=== PATIENT | female | born 1975 ===

== ENCOUNTER 2016-11-29 16:35 | Emergency (ER) | payer MEDICAID, OTHER ==
[2016-11-29 16:35] VITALS: BMI 25.0
[2016-11-29 16:54] VITALS: BP 101/67; PULSE 122; RESP 16; TEMP 97.8; O2SAT 98
--- NOTE | 2016-11-29 18:25 | C.PDOC ---
History Of Present Illness A 41 year old female, whose past medical history includes drug abuse, depression , and anxiety, presents to the emergency department for etoh, heroine, and cocaine detoxification. The patient admits her last use of all three substances were this morning. She denies any fever, chest pain, cough, vomiting, or any other complaints at this time. Time Seen by Provider: 11/29/16 17:02 Chief Complaint (Nursing): Substance Abuse History Per: Patient Onset/Duration Of Symptoms: Hrs Suicide/Self Injury Attempted (Context): None Modifying Factor(s): Alcohol, Cocaine, Other (heroin ) Additional History Per: Patient Past Medical History Vital Signs: Last Vital Signs Temp 97.8 F 11/29/16 16:50 Pulse 122 H 11/29/16 16:50 Resp 16 11/29/16 16:50 BP 101/67 11/29/16 16:50 Pulse Ox 98 11/29/16 18:32 - Medical History PMH: Anxiety, Depression Denies: Diabetes, Hepatitis, HIV, HTN, Seizures, Sexually Transmitted Disease Surgical History: Appendectomy - [facility] Procedures D & C NEC (07/11/98) DRUG DETOXIFICATION (12/09/14) FALLOPIAN TUBE INSUFFLAT (07/11/98) INJECT/INFUSE ELECTROLYT (12/11/13) INJECT/INFUSE NEC (12/11/13) LAPAROSCOP LYSIS-PERITONEAL ADHES (07/11/98) Family History: States: Unknown Family Hx - Social History Hx Tobacco Use: Yes Hx Alcohol Use: Yes Hx Substance Use: Yes (hx of) - Immunization History Hx Tetanus Toxoid Vaccination: Yes Hx Influenza Vaccination: No Hx Pneumococcal Vaccination: No Review Of Systems Except As Marked, All Systems Reviewed And Found Negative. Constitutional: Negative for: Fever Cardiovascular: Negative for: Chest Pain Respiratory: Negative for: Cough Gastrointestinal: Negative for: Vomiting Physical Exam - Physical Exam Appears: Well, No Acute Distress Skin: Normal Color, Warm, Dry Eye(s): bilateral: Normal Inspection, PERRL, EOMI Nose: Normal Throat: Normal Neck: Normal Cardiovascular: Rhythm Regular Respiratory: Normal Breath Sounds Gastrointestinal/Abdominal: Normal Exam Back: Normal Inspection Extremity: Normal ROM ED Course And Treatment O2 Sat by Pulse Oximetry: 98 Medical Decision Making Medical Decision Making: Treatment Plan: -- Labs: Alcohol serum, comp metabolic panel, drug screen -- Urinalysis Progress Notes: The patient is argumentative with [facility] staff and guards. I paged Dr. Mitchell and he no longer accepts the patient into his service or admission. The patient was given detoxification information and will be discharged. Disposition - Disposition Referrals: [facility] [Outside] [facility] [Outside] Disposition: HOME/ ROUTINE Disposition Time: 19:00 Condition: UNKNOWN Additional Instructions: Thank you for letting us take care of you today. The emergency medical care you received today was directed at your acute symptoms. If you were prescribed any medication, please fill it and take as directed. It may take several days for your symptoms to resolve. Return to the Emergency Department if your symptoms worsen, do not improve, or if you have any other problems. Please contact your doctor or call one of the physicians/clinics you have been referred to that are listed on the Patient Visit Information form that is included in your discharge packet. Bring any paperwork you were given at discharge with you along with any medications you are taking to your follow up visit. Our treatment cannot replace ongoing medical care by a primary care provider (PCP) outside of the emergency department. Thank you for allowing the [facility] team to be part of your care today. PLEASE FOLLOW UP WITH THE CLINIC FOR OUTPATIENT MEDICAL CARE. PLEASE USE THE DETOX LIST FOR ADDITIONAL LOCATIONS FOR DETOX. Instructions: Polysubstance Abuse (ED) - Clinical Impression Clinical Impression: Drug abuse - Scribe Statement The provider has reviewed the documentation as recorded by the Scribe Selma Bradshaw All medical record entries made by the Scribe were at my direction and personally dictated by me. I have reviewed the chart and agree that the record accurately reflects my personal performance of the history, physical exam, medical decision making, and the department course for this patient. I have also personally directed, reviewed, and agree with the discharge instructions and disposition. Physician Patient Turnover Patient Signed Over To: Guy Caro Handoff Comments: Pending crisis eval
[2016-11-29 19:18] LABS: BASO # 0.1 K/uL (0.0-0.2); BASO % 0.8 % (0.0-2.0); EOS # 0.2 K/uL (0.0-0.7); EOS % 3.1 % (0.0-4.0); HEMATOCRIT 39.8 % (34.0-47.0); LYMPH # 2.9 K/uL (1.0-4.3); LYMPH % 42.7 % (20.0-40.0); MEAN CELL VOLUME 90.9 fL (81.0-99.0); MEAN CORPUSCULAR HEMOGLOBIN 29.9 pg (27.0-31.0); MEAN PLATELET VOLUME 8.5 fL (7.2-11.7); MONO # 0.5 K/uL (0.0-0.8); MONO % 7.3 % (0.0-10.0); NRBC % 0.1 % (0.0-2.0); RED CELL DISTRIBUTION WIDTH 13.7 % (11.5-14.5); WHITE BLOOD COUNT 6.7 K/uL (4.8-10.8)
[2016-11-29 19:27] LABS: CHLORIDE 104 mmol/L (98-107); SODIUM 142 mmol/L (132-148)
[2016-11-29 19:29] LABS: GFR AFRICAN-AMERICAN > 60
[2016-11-29 19:30] LABS: ALB/GLOB RATIO 0.9 (1.0-2.1); ALKALINE PHOSPHATASE 113 U/L (38-126); ALT/SGPT 107 U/L (9-52); AST/SGOT 86 U/L (14-36); BILIRUBIN,TOTAL 0.9 mg/dL (0.2-1.3); BLOOD UREA NITROGEN 8 mg/dL (7-17); CALCIUM 9.3 mg/dl (8.6-10.4); CARBON DIOXIDE 26 mmol/L (22-30); GLUCOSE,RANDOM 96 mg/dL (65-105); TOTAL PROTEIN 7.9 g/dL (6.3-8.3)
[2016-11-29 19:31] LABS: ALCOHOL SERUM < 10 mg/dl (0-10)
[2016-11-29 19:40] LABS: URINE BACTERIA RARE (<OCC); URINE BILIRUBIN NEGATIVE (NEGATIVE); URINE BLOOD NEGATIVE (NEGATIVE); URINE CALCIUM OXALATE CRYSTALS OCC /hpf (<OCC); URINE GLUCOSE (UA) NORMAL (Normal); URINE KETONE TRACE mg/dL (NEGATIVE); URINE LEUKOCYTE ESTERASE NEG Leu/uL (Negative); URINE PROTEIN 1+ mg/dL (NEGATIVE); WBC URINE 2 /hpf (0-5)
[2016-11-29 19:41] LABS: URINE COLOR YELLOW (YELLOW)
== END 2016-11-29 20:46 | disposition left against medical advice (07) ==
LOC: C.ER 16:35
DX: F14.10 Cocaine abuse, uncomplicated (principal); F11.10 Opioid abuse, uncomplicated; F10.10 Alcohol abuse, uncomplicated; Y90.0 Blood alcohol level of less than 20 mg/100 ml

== ENCOUNTER 2017-05-09 13:12 | Inpatient (IN) | payer MEDICAID ==
[2017-05-09 13:13] VITALS: BMI 25.0
--- NOTE | 2017-05-09 13:53 | C.PDOC ---
History Of Present Illness 41 y/o female presents to ED requesting heroin detox. Patient reports last used earlier today and denies any physical complaints at this time. Time Seen by Provider: 05/09/17 13:37 Chief Complaint (Nursing): Substance Abuse History Per: Patient History/Exam Limitations: no limitations Onset/Duration Of Symptoms: Days Current Symptoms Are (Timing): Still Present Suicide/Self Injury Attempted (Context): None Past Medical History Reviewed: Historical Data, Nursing Documentation, Vital Signs Vital Signs: Last Vital Signs Temp 98.4 F 05/09/17 17:19 Pulse 58 L 05/09/17 17:19 Resp 18 05/09/17 16:03 BP 90/54 L 05/09/17 17:19 Pulse Ox 98 05/09/17 17:19 - Medical History PMH: Anxiety, Depression Surgical History: Appendectomy - [facility] Procedures D & C NEC (07/11/98) DRUG DETOXIFICATION (12/09/14) FALLOPIAN TUBE INSUFFLAT (07/11/98) INJECT/INFUSE ELECTROLYT (12/11/13) INJECT/INFUSE NEC (12/11/13) LAPAROSCOP LYSIS-PERITONEAL ADHES (07/11/98) Family History: States: No Known Family Hx - Social History Hx Tobacco Use: Yes Hx Alcohol Use: Yes Hx Substance Use: Yes (hx of) - Immunization History Hx Tetanus Toxoid Vaccination: Yes Hx Influenza Vaccination: No Hx Pneumococcal Vaccination: No Review Of Systems Except As Marked, All Systems Reviewed And Found Negative. Physical Exam - Physical Exam Appears: Non-toxic, No Acute Distress Skin: Warm, Dry, No Rash Head: Atraumatic, Normacephalic Eye(s): bilateral: Normal Inspection Oral Mucosa: Moist Neck: Normal ROM, Supple Cardiovascular: Rhythm Regular Respiratory: Normal Breath Sounds, No Rales, No Rhonchi, No Wheezing Gastrointestinal/Abdominal: Soft, No Tenderness, No Guarding, No Rebound Extremity: Normal ROM, Capillary Refill (<2 seconds) Neurological/Psych: Oriented x3 ED Course And Treatment - Laboratory Results Result Diagrams: 05/09/17 15:23 05/09/17 15:23 O2 Sat by Pulse Oximetry: 98 (RA) Pulse Ox Interpretation: Normal Medical Decision Making Medical Decision Making: Patient is here for detox - labs pending 410: medically cleared accepted dr gonzalez. urine treated. Disposition - Disposition Disposition: HOSPITALIZED Disposition Time: 05:30 Condition: STABLE - Clinical Impression Clinical Impression: Opiate addiction, UTI (urinary tract infection) - Scribe Statement The provider has reviewed the documentation as recorded by the Isaiasibluis daniel Sylvester All medical record entries made by the Scribe were at my direction and personally dictated by me. I have reviewed the chart and agree that the record accurately reflects my personal performance of the history, physical exam, medical decision making, and the department course for this patient. I have also personally directed, reviewed, and agree with the discharge instructions and disposition. Decision To Admit - Pt Status Changed To: Hospital Disposition Of: Inpatient - Admit Certification Admit to Inpatient:: After my assessment, the patient will require hospitalization for at least two midnights. This is because of the severity of symptoms shown, intensity of services needed, and/or the medical risk in this patient being treated as an outpatient. - InPatient: Physician Admission Certification: I certify that this patient requires 2 or more midnights of care for the following reason:: needs inpt for detox - . Bed Request Type: Detox Admitting Physician: Boris Gonzalez Patient Diagnosis: Opiate addiction, UTI (urinary tract infection)
[2017-05-09 15:32] LABS: BASO % 0.2 % (0.0-2.0); EOS # 0.3 K/uL (0.0-0.7); EOS % 3.1 % (0.0-4.0); LYMPH # 2.4 K/uL (1.0-4.3); LYMPH % 26.2 % (20.0-40.0); MEAN CELL VOLUME 88.6 fL (81.0-99.0); MEAN CORPUSCULAR HGB CONC 33.9 g/dL (33.0-37.0); MEAN PLATELET VOLUME 8.5 fL (7.2-11.7); MONO # 0.3 K/uL (0.0-0.8); MONO % 3.2 % (0.0-10.0); NEUT # 6.3 K/uL (1.8-7.0); NEUT % 67.3 % (50.0-75.0); NRBC % 0.1 % (0.0-2.0); RBC 4.66 Mil/uL (3.80-5.20); RED CELL DISTRIBUTION WIDTH 14.6 % (11.5-14.5); WHITE BLOOD COUNT 9.3 K/uL (4.8-10.8)
[2017-05-09 15:33] LABS: HCG,QUALITATIVE URINE NEGATIVE (NEGATIVE)
[2017-05-09 15:40] LABS: SQUAMOUS EPITHIAL 1 /hpf (0-5); URINE BACTERIA OCC (<OCC); URINE BILIRUBIN NEGATIVE (NEGATIVE); URINE BLOOD NEGATIVE (NEGATIVE); URINE CLARITY Clear (Clear); URINE COLOR Yellow (YELLOW); URINE GLUCOSE (UA) NORMAL (Normal); URINE LEUKOCYTE ESTERASE NEG Leu/uL (Negative); URINE NITRATE POSITIVE (NEGATIVE); URINE PROTEIN NEGATIVE (NEGATIVE); URINE UROBILINOGEN NORMAL mg/dL (0.2-1.0)
[2017-05-09 15:50] LABS: ALB/GLOB RATIO 0.9 (1.0-2.1); ALBUMIN 3.7 g/dL (3.5-5.0); ALT/SGPT 58 U/L (9-52); AST/SGOT 51 U/L (14-36); BLOOD UREA NITROGEN 5 mg/dL (7-17); CALCIUM 8.5 mg/dl (8.6-10.4); GFR AFRICAN-AMERICAN > 60; GFR NON-AFRICAN AMERICAN > 60
[2017-05-09 15:52] LABS: BARBITURATES, UR NEGATIVE (NEGATIVE); BENZODIAZEPINES, UR NEGATIVE (NEGATIVE); PHENCYCLIDINE, UR NEGATIVE (NEGATIVE)
[2017-05-09 16:00] LABS: OPIATES, UR POSITIVE (NEGATIVE)
[2017-05-09] MEDS ORDERED: Aluminum Hydroxide/Magnesium Hydroxide Susp (30 mL) PO PRN (17:20)
[2017-05-09] MEDS: Multiple Vitamins Tab PO SCH (18:14)
--- NOTE | 2017-05-09 18:20 | PCM.BM ---
<Priyanka Amos - Last Filed: 05/09/17 18:19> Treatment Plan Problems - Problems identified on initial assessmt Potential for alcohol withdrawal Date Initiated: 05/09/17 Time Initiated: 18:19 Assessment reference: NA Status: Active Priority: 1 Potential for opiate withdrawal Date Initiated: 05/09/17 Time Initiated: 18:19 Assessment reference: NA Status: Active Priority: 2 Treatment assets and liabiliti Patient Assests: ADL independent, negotiates basic needs, cognitively intact Patient Liabilities: substance abuse - Milieu Protocol Maintain good personal hygiene: daily Encourage regular showers, daily Remind patient to perform daily oral care, daily Assist patient to perform ADL's Conduct patient checks and document Observation sheet: Q15 minutes Maintain personal safety: every shift Educate patient to report safety concerns to staff, every shift Monitor environment for contraband/sharps Medication safety: Monitor for expected outcome, potential side effects: every shift, Assess barriers to learning: every shift, Assess readiness for medication education: every shift <Boris Corley - Last Filed: 05/14/17 23:40> - Diagnosis (1) Opioid dependence Status: Acute Interventions: 05/14/17 23:40 * Assess 7x/week regarding severity of withdrawal * Educate regarding risks, benefits, side effects and alternatives of medications * Use Motivational Interviewing for abstinence * Use CBT for relapse prevention * Medication management for withdrawal symptoms * Encourage medication assisted treatment *
[2017-05-10] MEDS: Multiple Vitamins Tab PO SCH (10:24)
--- NOTE | 2017-05-10 23:49 | PCM.PSYCH ---
Initial Psychiatric Evaluation - Initial Psychiatric Evaluation Type of Admission: Voluntary Legal Status: Capacity History of Present Illness and Precipitating Events: Patient is a 41 yo LF single with 2 children, both teens, unemployed, lives alone. The patient was admitted in 2014 to our detox and last year to [facility], psych. Patient shoots heroin when the boyfriend is at work. She says she uses anywhere from 20 to 50 bags, IV, x6 years. Same with cocaine; 6 years, IV. She uses alcohol more than a pint x6 months (no wdw) and xanax 2-3 sticks not daily x 3 months She has been to detox at least 10 x, rehab once in [facility]. Past Psych Hx: patient reports history of anxiety, irritability. reports one admission in 2013 and 2016 for suicide attempt and depression respectively. Family Psych Hx: patient denies any family history of psychiatric disorders. The patient's sister also has a history of substance abuse. Parents too. Past Medical Hx: patient denies any significant past medical history. Current Medications: Active Medications Generic Name Dose Route Start Last Admin Trade Name Freq PRN Reason Stop Dose Admin Al Hydrox/Mg Hydrox/Simethicone 30 ml 05/09/17 17:20 Maalox 30 Ml PO TID PRN Indigestion / Heartburn Chlordiazepoxide 25 mg 05/09/17 18:00 05/10/17 17:29 Librium PO 05/14/17 17:59 25 mg Q8H RUBEN Administration Taper Chlordiazepoxide 25 mg 05/10/17 14:07 05/10/17 15:28 Librium PO 25 mg Q4H PRN Administration withdrawal Clonidine HCl 0.1 mg 05/09/17 17:18 05/10/17 19:31 Catapres PO 0.1 mg Q4H PRN Administration Symptoms of alcohol withdrawl Folic Acid 1 mg 05/09/17 17:30 05/10/17 10:24 Folic Acid PO 1 mg DAILY RUBEN Administration Gabapentin 100 mg 05/09/17 18:00 05/10/17 17:29 Neurontin PO 100 mg TID RUBEN Administration Hydroxyzine HCl 50 mg 05/09/17 17:21 05/10/17 19:31 Atarax PO 50 mg Q6H PRN Administration Anxiety Ibuprofen 600 mg 05/09/17 17:21 Motrin Tab PO Q6H PRN Pain, moderate (4-7) Loperamide HCl 2 mg 05/09/17 17:20 Imodium PO Q8 PRN Diarrhea Multivitamins 1 tab 05/09/17 17:30 05/10/17 10:24 Hexavitamin PO 1 tab DAILY RUBEN Administration Nicotine 1 patch 05/10/17 10:00 05/10/17 10:24 Nicoderm Cq TD 1 patch DAILY RUBEN Administration Nitrofurantoin Macrocrystals 100 mg 05/10/17 19:00 05/10/17 18:02 Macrobid PO 100 mg Q12H RUBEN Administration Ondansetron HCl 4 mg 05/09/17 17:20 05/10/17 18:02 Zofran Tab PO 4 mg Q8 PRN Administration Nausea/Vomiting Ondansetron HCl 4 mg 05/10/17 23:35 Zofran Inj IM Q4H PRN Nausea/Vomiting Thiamine HCl 100 mg 05/09/17 17:30 05/10/17 10:24 Vitamin B1 Tab PO 100 mg DAILY RUBEN Administration Trazodone HCl 100 mg 05/09/17 17:18 05/10/17 21:45 Desyrel PO 100 mg HS PRN Administration Insomnia Past Psychiatric History - Past Psychiatric History Previous Treatment History: Inpatient Pertinent Medical Hx (Current Medical&Sleep Prob, Allergies): Allergies Allergy/AdvReac Type Severity Reaction Status Date / Time No Known Allergies Allergy Verified 05/09/17 13:53 RX: No Known Home Med 05/09/17 Review of Systems - Neurological Neurological: Tremor - Psychiatric Psychiatric: Abnormal Sleep Pattern, Anhedonia, Anxiety, Difficulty Concentrating, Irritability. absent: Homicidal Ideation, Suicidal Ideation Mental Status Examination - Personal Presentation Personal Presentation: Looks older than stated age - Affect Affect: Constricted - Motor Activity Motor Activity: Calm - Reliability in Providing Information Reliability in Providing Information: Good - Speech Speech: Organized - Mood Mood: Depressed, Anxious - Formal Thought Process Formal Thought Process: No Impairment - Cognitive Functions Orientation: Person, Place, Situation, Time Sensorium: Alert Estimate of Intelligence: Average Judgement: Intact, as evidence by: Insight regarding need for hospitalization Memory: Recent intact, as evidence by: Ability to recall events of the day, Remote intact, as evidenced by: Abilit to recall sig. 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 Attend groups and activities Supportive therapy and psychoeducation [place] for abstinence CBT for relapse prevention Encourage MAT Refer to rehab or IOP Attend self-help groups as well 34 min Projected ELOS: 4-5 days Prognosis: Good - Smoking Cessation Smoking Cessation Initiated: Yes
[2017-05-11] MEDS ORDERED: Pantoprazole 20 mg EC Tab PO ONE (06:30)
[2017-05-11 09:01] LABS: ALB/GLOB RATIO 0.9 (1.0-2.1); ALBUMIN 3.9 g/dL (3.5-5.0); ALT/SGPT 60 U/L (9-52); AMYLASE 60 U/L (30-110); AST/SGOT 48 U/L (14-36); BLOOD UREA NITROGEN 11 mg/dL (7-17); CALCIUM 9.6 mg/dl (8.6-10.4); GFR AFRICAN-AMERICAN > 60; GFR NON-AFRICAN AMERICAN > 60; LIPASE 25 U/L (23-300)
[2017-05-11] MEDS: Multiple Vitamins Tab PO SCH (11:19)
--- NOTE | 2017-05-11 20:15 | PCM.PYCHPN ---
Psychiatric Progress Note - Psychiatric Progress Note Patient seen today, length of contact: 19 min Patient Chief Complaint: "I threw up" Problems Identified/Issues Discussed: The pt is seen, chart reviewed, case discussed with staff. The pt is compliant with medications and reports no side-effects. Symptoms are improving but needs more time to stabilize. She threw up several times last night and IM meds given as well as ativan Better this morning but tired and irate After care discussed, support and psychoeducation given. Medication Change: Yes (detox changes daily) Medical Record Reviewed: Yes Mental Status Examination - Cognitive Function Orientation: Person, Place, Situation, Time Memory: Impaired Attention: Poor Concentration: Poor Association: WNL Fund of Knowledge: WNL - Mood Mood: Depressed, Anxious - Affect Affect: Constricted - Speech Speech: Appropriate - Formal Thought Process Formal Thought Process: No Impairment - Suicidal Ideation Suicidal Ideation: No - Homicidal Ideation Homicidal Ideation: No Goal/Treatment Plan - Goal/Treatment Plan Need for Continued Stay: Discharge may exacerbated symptoms, Severe functional impairment Progress Toward Problem(s) and Goals/Treatment Plan: Methadone and librium detox adjusted As needed medications Gabapentin for augmentation All risks, benefits and alternatives of medications, including no medications, discussed and the patient understood and agreed. Attend groups and activities Supportive therapy and psychoeducation [place] for abstinence CBT for relapse prevention Encourage MAT Refer to rehab or IOP Attend self-help groups as well
[2017-05-12] MEDS: Multiple Vitamins Tab PO SCH (10:08)
--- NOTE | 2017-05-12 13:43 | PCM.PYCHPN ---
Psychiatric Progress Note - Psychiatric Progress Note Patient seen today, length of contact: 17 min Patient Chief Complaint: "Still no good" Problems Identified/Issues Discussed: The pt is seen, chart reviewed, case discussed with staff. Support given, CBT and LA used briefly No new symptoms reported, except for decreasing NV; improving slowly and needs more time No SEs from medications, risks discussed. After care discussed - interested in short term rehab vs. methadone maint. Medication Change: Yes (detox changes daily) Medical Record Reviewed: Yes Mental Status Examination - Cognitive Function Orientation: Person, Place, Situation, Time Memory: Impaired Attention: Poor Concentration: Poor Association: WNL Fund of Knowledge: WNL - Mood Mood: Depressed, Anxious - Affect Affect: Constricted - Speech Speech: Appropriate - Formal Thought Process Formal Thought Process: No Impairment - Suicidal Ideation Suicidal Ideation: No - Homicidal Ideation Homicidal Ideation: No Goal/Treatment Plan - Goal/Treatment Plan Need for Continued Stay: Discharge may exacerbated symptoms, Severe functional impairment Progress Toward Problem(s) and Goals/Treatment Plan: Methadone and librium detox adjusted As needed medications Gabapentin for augmentation All risks, benefits and alternatives of medications, including no medications, discussed and the patient understood and agreed. Attend groups and activities Supportive therapy and psychoeducation [place] for abstinence CBT for relapse prevention Encourage MAT Refer to rehab or IOP Attend self-help groups as well
[2017-05-13 06:28] VITALS: RESP 20
--- NOTE | 2017-05-13 09:48 | PCM.PYCHDC ---
Mental Status Examination - Mental Status Examination Orientation: Person, Place, Situation, Time Memory: Impaired Mood: Anxious Affect: Constricted Speech: Appropriate Attention: WNL Concentration: Poor Association: WNL Fund of Knowledge: Poor Formal Thought Process: No Impairment Suicidal Ideation: No Current Homicidal Ideation?: No Discharge Summary - Discharge Note Reason for Hospitalization: Opiate detox Consultations:: List each consultation separately and include: 1. Reason for request. 2. Findings. 3. Follow-up Summary of Hospital Course include:: 1. Description of specific treatment plan utilized for patients during their course of treatmen. 2. Summarize the time- course for resolution of acute symptoms and/or regressed behaviors. 3. Describe issues identified and worked on during hospitalization. 4. Describe medication utilized. 5. Describe medical problems identified and treated. 6. Reassessment of suicide risk Summary of Hospital Course: Patient is a 41 yo LF single with 2 children, both teens, unemployed, lives alone. On admission: The patient was admitted in 2014 to our detox and last year to [facility], psych. Patient shoots heroin when the boyfriend is at work. She says she uses anywhere from 20 to 50 bags, IV, x6 years. Same with cocaine; 6 years, IV. She uses alcohol more than a pint x6 months (no wdw) and xanax 2-3 sticks not daily x 3 months She has been to detox at least 10 x, rehab once in [facility]. Past Psych Hx: patient reports history of anxiety, irritability. reports one admission in 2013 and 2016 for suicide attempt and depression respectively. Family Psych Hx: patient denies any family history of psychiatric disorders. The patient's sister also has a history of substance abuse. Parents too. Past Medical Hx: patient denies any significant past medical history. Hospital course: The pt was admitted and started on treatment with psychotherapy, support, psychoeducation and medications. NE and CBT used. The pt attended groups and activities, as well as milieu therapy. All the risks and benefits of medications are discussed and the patient understood and agreed. The pt improved slowly with the treatments provided. She had lots of NV and had a tough detox. After care discussed with the patient. She was back and forth but decided to go to a methadone program. She claimed she couldn't leave her apartment for long rehab. She was also on probation. She had one more day to finish her detox but she demanded to leave. Risks discussed, incl. OD and even and she verbalized understanding. Meanwhile, scientific technical writer was told that the patient was highly suspected to have SMOKED on the unit. She was also verbally abusive at times and splitting. She should be evaluated carefully if she returns. 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 Follow after care plan as discussed. Use relapse prevention skills Return to ER or call 911 if suicidal, homicidal or symptoms relapse. Stay away from stress, alcohol and drugs. See primary doctor regularly and get labs. Prescriptions/Medication Reconciliation: Gabapentin [Neurontin] 300 mg PO TID #90 cap Multivitamins [Hexavitamin] 1 tab PO DAILY #30 tab Nitrofurantoin Macrocrystals [Macrobid] 100 mg PO Q12H #6 cap Ondansetron [Zofran Tab] 4 mg PO BID PRN #14 tab PRN Reason: Nausea/Vomiting Pantoprazole [Protonix EC Tab] 20 mg PO DAILY #30 ect traZODone [Desyrel] 100 mg PO HS PRN #30 tab PRN Reason: Insomnia
[2017-05-13 09:51] VITALS: BP 103/64; PULSE 64; TEMP 98.8; O2SAT 100
[2017-05-13] MEDS: Multiple Vitamins Tab PO SCH (09:51)
[2017-05-13] MEDS ORDERED: Pantoprazole 20 mg EC Tab PO SCH (10:00)
== END 2017-05-13 10:05 | disposition home or self-care (01) | DRG 744 ==
LOC: C.ER 13:12 → C.7D 16:08
PROVIDERS: ADMIT Psychiatry & Neurology Psychiatry; ATTEND Psychiatry & Neurology Psychiatry
PROC: HZ2ZZZZ Detoxification Services for Substance Abuse Treatment (ICD-10-PCS; principal; 2017-05-09)
PROC: HZ46ZZZ Group Counseling for Substance Abuse Treatment, Psychoeducation (ICD-10-PCS; 2017-05-09)
PROC: HZ36ZZZ Individual Counseling for Substance Abuse Treatment, Psychoeducation (ICD-10-PCS; 2017-05-09)
PROC: HZ93ZZZ Pharmacotherapy for Substance Abuse Treatment, Antabuse (ICD-10-PCS; 2017-05-09)
PROC: GZ3ZZZZ Medication Management (ICD-10-PCS; 2017-05-09)
DX: F11.23 Opioid dependence with withdrawal (principal); F10.10 Alcohol abuse, uncomplicated; F14.90 Cocaine use, unspecified, uncomplicated; F32.9 Major depressive disorder, single episode, unspecified; N39.0 Urinary tract infection, site not specified; F60.3 Borderline personality disorder; F41.1 Generalized anxiety disorder; F17.210 Nicotine dependence, cigarettes, uncomplicated